=== PATIENT | male | born 1960 | race Caucasian/White ===

== ENCOUNTER → 2024-11-19 | Outpatient (CLI) | payer MEDICAID, OTHER ==
[~2024-11-19] MED LIST: ACETAMINOPHEN 325 MG TAB PO PRN; ALTA1CAP3 PO; ASPI81TA26 PO; ATOR80TA59 PO; BISO5TAB14 PO; CARDIAC STRESS TEST RESCUE BOX 1 KIT EA XX ONE; CLOP75TA2 PO; COLC0.6T47 PO; ISOS-18 PO
[2024-11-19 08:02] VITALS: TEMP 98.1
[2024-11-19 11:50] VITALS: BP 120/56; O2SAT 91
== END ==
LOC: M IRPRO 07:40
PROVIDERS: ATTEND Thoracic Surgery (Cardiothoracic Vascular Surgery)
DX: J90 Pleural effusion, not elsewhere classified (principal)